=== PATIENT | male | born 1965 | race Caucasian/White ===

== ENCOUNTER 2017-12-09 14:24 | Emergency (ER) | END 2017-12-09 17:40 | disposition home or self-care (01) ==

== ENCOUNTER 2019-06-03 01:21 | Observation (INO) | payer OTHER ==
[~2019-06-03] VITALS: Ht 165.1 cm; Wt 81.5 kg
[~2019-06-03 01:21] MED LIST: ACET500C5 PO; IBUP800T48 PO
[2019-06-03] MEDS ORDERED: SOD CHLORIDE 0.9% 500 ML IV STA (03:08)
[2019-06-03] MEDS ORDERED: ONDANSETRON 4 MG INJ IV STA (04:29)
[2019-06-03] MEDS ORDERED: morphine 4 MG/ML VIAL IV STA (04:29)
--- NOTE | 2019-06-03 05:25 | ERD ---
ER Documentation Chief Complaint Chief Complaint CHEST PAIN/PRESSURE X1HR; NO MED HX HPI This is a 54-year-old male with no medical history of chest pressure with radiation to his left arm for the past hour prior to arrival. Pain is mild to moderate intensity pressure-like in sensation with no exacerbating or alleviating factors and radiation to the left arm and left jaw. Denies fevers or chills. Denies shortness of breath. Does complain of mild diaphoresis and mild nausea associated with it. No previous medical history. No previous cardiac work-up. Reviewing EMR patient's been here one time previous for a closed head injury. ROS All systems reviewed and are negative except as per history of present illness. Medications Home Meds Discontinued Scripts Acetaminophen* (Tylophen*) 500 Mg Capsule, 1 CAP PO Q6H PRN for PAIN AND OR ELEVATED TEMP, #30 CAP Prov:SIRI ELLISON PA-C 12/09/17 Allergies Allergies: Coded Allergies: No Known Allergy (Unverified , 06/03/19) PMhx/Soc Medical and Surgical Hx: pt denies Medical Hx, pt denies Surgical Hx Hx Alcohol Use: No Hx Substance Use: No Hx Tobacco Use: No Smoking Status: Never smoker Physical Exam Vitals Vital Signs Date Temp Pulse Resp B/P (MAP) Pulse Ox O2 O2 Flow FiO2 Time Delivery Rate 06/03/19 98.0 70 19 104/58 96 01:29 (73) Physical Exam Const: No acute distress Head: Atraumatic Eyes: Normal Conjunctiva ENT: Normal External Ears, Nose and Mouth. Neck: Full range of motion. No meningismus. Resp: Clear to auscultation bilaterally Cardio: Regular rate and rhythm, no murmurs Abd: Soft, non tender, non distended. Normal bowel sounds Skin: No petechiae or rashes Back: No midline or flank tenderness Ext: No cyanosis, or edema Neur: Awake and alert Psych: Normal Mood and Affect Result Diagram: 06/03/19 0340 06/03/19 0340 Results 24 hrs Laboratory Tests Test 06/03/19 03:40 White Blood Count 6.5 10^3/ul Red Blood Count 4.53 10^6/ul Hemoglobin 13.5 g/dl Hematocrit 40.5 % Mean Corpuscular Volume 89.4 fl Mean Corpuscular Hemoglobin 29.8 pg Mean Corpuscular Hemoglobin Concent 33.3 g/dl Red Cell Distribution Width 12.5 % Platelet Count 205 10^3/UL Mean Platelet Volume 10.0 fl Immature Granulocytes % 0.300 % Neutrophils % 56.4 % Lymphocytes % 28.9 % Monocytes % 10.7 % Eosinophils % 3.1 % Basophils % 0.6 % Nucleated Red Blood Cells % 0.0 /100WBC Immature Granulocytes # 0.020 10^3/ul Neutrophils # 3.7 10^3/ul Lymphocytes # 1.9 10^3/ul Monocytes # 0.7 10^3/ul Eosinophils # 0.2 10^3/ul Basophils # 0.0 10^3/ul Nucleated Red Blood Cells # 0.0 10^3/ul Sodium Level 139 mmol/L Potassium Level 4.1 mmol/L Chloride Level 105 mmol/L Carbon Dioxide Level 26 mmol/L Anion Gap 8 Blood Urea Nitrogen 26 mg/dl Creatinine 0.83 mg/dl Est Glomerular Filtrat Rate mL/min > 60 mL/min Glucose Level 136 mg/dl Calcium Level 9.3 mg/dl Total Bilirubin 0.5 mg/dl Direct Bilirubin 0.00 mg/dl Indirect Bilirubin 0.5 mg/dl Aspartate Amino Transf (AST/SGOT) 33 IU/L Alanine Aminotransferase (ALT/SGPT) 42 IU/L Alkaline Phosphatase 95 IU/L Troponin I < 0.012 ng/ml B-Type Natriuretic Peptide 37 PG/ML Total Protein 7.8 g/dl Albumin 4.2 g/dl Globulin 3.60 g/dl Albumin/Globulin Ratio 1.16 Current Medications Medications Dose Sig/Kelli Start Time Status Last (Trade) Ordered Route PRN Stop Time Admin Dose Reason Admin Sodium 500 ml @ Q1H STAT 06/03/19 DC 06/03/19 Chloride 500 mls/hr IV 03:08 04:00 06/03/19 04:07 Morphine 4 mg ONCE STAT 06/03/19 DC 06/03/19 Sulfate IV 04:29 04:43 (morphine) 06/03/19 04:31 Ondansetron 4 mg ONCE STAT 06/03/19 DC 06/03/19 HCl (Zofran IV 04:29 04:43 Inj) 06/03/19 04:31 Procedures/MDM EKG: Rate/Rhythm: [Normal Sinus Rhythm] QRS, ST, T-waves: [No changes consistent w/ acute ischemia] Impression: [No evidence of ischemia or arrhythmia] Chest X-ray 1V Interpreted by me: Soft Tissue: No acute abnormalities Bones: No acute abnormalities Mediastinum/Cardiac Silhouette/Lungs: [No acute abnormalities] Medical decision making: Patient's symptoms are concerning for cardiac cause will require inpatient workup and continuous monitoring. Further w/u for isch emia, arrhythmia, PE or dissection will be deferred to the inpatient team. Accepting Care Team: Current data and ongoing care discussed. Time: 5:40 AM Primary Provider: Kae Consulting: Deferred to inpatient team Outstanding Data: none Departure Diagnosis: Primary Impression: Chest pain Chest pain type: unspecified Qualified Codes: R07.9 - Chest pain, unspecified Condition: Serious BOB PRESSLEY Jun 03, 2019 05:25
[2019-06-03] MEDS ORDERED: ASPIRIN 81 MG TAB PO ONE (05:30)
[2019-06-03] MEDS ORDERED: ONDANSETRON 4 MG INJ IV PRN ×2 (05:30→07:30)
[2019-06-03] MEDS ORDERED: ACETAMINOPHEN 325 MG TAB PO PRN (05:30)
[2019-06-03 06:33] VITALS: Ht 165.1 cm; Wt 81.5 kg
[2019-06-03 06:34] VITALS: BP 102/67; PULSE 57; RESP 18
[2019-06-03 07:24] VITALS: BP 94/59; PULSE 60; RESP 20
[2019-06-03] MEDS ORDERED: ATORVASTATIN 20 MG TAB PO SCH (07:30)
[2019-06-03] MEDS ORDERED: morphine 2 MG INJ IV PRN (07:30)
[2019-06-03] MEDS ORDERED: ASPIRIN (EC) 81 MG TAB PO SCH (09:00)
--- NOTE | 2019-06-03 09:45 | PDOCDIS ---
Discharge Instructions CONDITION [id number] Patient Condition: [id number] Good HOME CARE INSTRUCTIONS: [id number] Diet Instructions: [id number] Regular ACTIVITY: [id number] Activity Restrictions: [id number] Avoid heavy lifting FOLLOW UP/APPOINTMENTS Follow-up Plan pcp 1 week ARTHUR GIMENEZ MD Jun 03, 2019 09:45
[2019-06-03 10:56] VITALS: BP 99/62; PULSE 52; RESP 20
[2019-06-03 15:12] VITALS: BP 93/56; PULSE 59; RESP 20
--- NOTE | 2019-06-03 15:19 | HP ---
DATE OF ADMISSION: 06/03/2019 CHIEF COMPLAINT: Left-sided chest pain. HISTORY OF PRESENT ILLNESS: The patient is a 54-year-old male with an unremarkable past med ical history, who presented to emergency room with complaint of left upper chest pain radiating to th e left arm. The patient had constant pain for 4 to 5 hours, which was finally relieved with morphine . He denies any exertional symptoms. No shortness of breath. No nausea or vomiting. The patient h ad mild diaphoresis. 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 Initial evaluation was unremarkable. Serial troponins have been negative. A 12-lead EKG did not reginald w any ST-T wave changes. The chest x-ray was unremarkable. PAST MEDICAL HISTORY: None. MEDICATIONS PRIOR TO ADMISSION: None. SOCIAL HISTORY: The patient lives at home. He denies tobacco use and drinks alcohol on rare social occasions. PHYSICAL EXAMINATION: GENERAL: Well-developed, well-nourished male who is in no apparent distress. VITAL SIGNS: Stable. He is afebrile. HEENT: Extraocular muscles intact. Pupils equal and reactive to light bilaterally. Sclerae are ani cteric. Oropharynx is clear and moist. NECK: Supple, no JVD, no carotid bruits. LUNGS: Clear to auscultation bilaterally. CARDIAC: Regular rate and rhythm. No murmurs or gallops. CHEST: Left upper chest tenderness to palpation adjacent to the left shoulder. The patient has repr oducible chest discomfort for when he raises his left upper extremity. ABDOMEN: Soft, nontender, nondistended, normoactive bowel sounds. EXTREMITIES: No clubbing, cyanosis, or edema. NEUROLOGICAL: Nonfocal. LABORATORY DATA: Basic metabolic panel and liver function tests were all within normal limits. CBC was normal. ASSESSMENT: The patient is a 54-year-old male presenting with atypical chest pain. The pain is oracio cent to the left shoulder and is reproducible with palpation and left upper extremity range of motion . The patient has no cardiac risk factors. PLAN: 1. Place in tele observation, proceed with 2D echo. 2. Discharge planning on a 5-day course of nonsteroidal anti-inflammatory. Cardiology consultation was also requested. Dictated By: ARTHUR DIAZ/NEREYDA Conf#: [id number] DID#: [id number] CC: MADHURI PENA MD;*[facility]*
[2019-06-03] MEDS ORDERED: REGADENOSON 0.4 MG/5 ML SYG ONE (15:37)
--- NOTE | 2019-06-03 16:10 | RADRPT ---
Echocardiogram Report Patient Name: KOBY BARRIOSPatient ID: [id number] : 1965 (54y 1m)Study Date: 06/03/2019 9:35:10 AM Gender: MAccession #: [id number] Tech: David Blanton [facility] Location: [address] Ref.Physician: MADHURI PENA Height(Cm): BSA: Weight(Kg): Quality: Technically Difficult StudyAccount #: [id number] Procedures: Echocardiographic Report: Transthoracic echocardiogram with complete 2D, M-Mode, and doppler examination. Indications: Chest Pain. Measurements: 2D/M Mode Doppler Measurement Value Normal Range Measurement Value Normal Range LVIDd 2D 5.1 [ 4.2 - 5.8 ] cm AV Peak Micah 1.1 [ 100.0 - 170.0 ] cm/sec LVIDs 2D 3.7 [ 2.5 - 4.0 ] cm AV Peak PG 5.0 [ 2.0 - 9.0 ] mmHg LVPWd 2D 0.8 [ 0.6 - 1.0 ] cm LVOT Peak Micah 0.7 [ 70.0 - 110.0 ] cm/sec IVSd 2D 0.7 [ 0.6 - 1.0 ] cm LVOT Peak PG 2.0 [ 2.0 - 6.0 ] mmHg AoR Diam 2D 2.8 [ 2.6 - 3.4 ] cm MV E Peak Micah 0.8 [ 60.0 - 130.0 ] cm/sec EDV 2D 125.0 [ 62.0 - 150.0 ] ml MV A Peak Micah 0.6 [ 100.0 - 120.0 ] cm/sec ESV 2D 59.3 [ 21.0 - 61.0 ] ml MV E/A 1.3 [ 0.8 - 1.5 ] ratio EF 2D 52.6 [ 52.0 - 72.0 ] percent MV Decel Time 183 [ 104 - 258 ] msec LA Dimen 2D 3.8 [ 3.0 - 4.0 ] cm Lat E` Micah 0.1 [ 10.0 - 15.0 ] cm/sec Lateral E/E` 7.0 [ 1.0 - 2.0 ] ratio Med E` Micah 0.1 cm/sec MV E/A 1.3 [ 0.8 - 1.5 ] ratio TR Peak Micah 2.2 [ 100.0 - 280.0 ] cm/sec TR Peak PG 19.0 mmHg RVSP 27.0 [ 10.0 - 36.0 ] mmHg Findings: Left Ventricle: Normal left ventricular systolic function. Normal left ventricular cavity size. Normal left ventricular wall thickness. Ejection fraction is visually estimated at 55 %. Right Ventricle: Normal right ventricular size. Normal right ventricular systolic function. Left Atrium: The left atrium is normal in size. Right Atrium: The right atrium is normal in size. Mitral Valve: Mild mitral leaflet calcification. Mild mitral annular calcification. Trace mitral regurgitation. Aortic Valve: No significant aortic stenosis or insufficiency. Aortic cusps appear mildly calcified. Tricuspid Valve: Normal appearance and function of the tricuspid valve with trace physiologic regurgitation. The estimated Peak RVSP is 27 mmHg. Pericardium: Normal pericardium with no significant pericardial effusion. Aorta: Normal aortic root. IVC: Dilated IVC with respiratory collapse consistent with elevated right atrial pressure. Conclusions: Normal left ventricular systolic function. Normal left ventricular cavity size. Normal left ventricular wall thickness. Ejection fraction is visually estimated at 55 %. Normal right ventricular size. Normal right ventricular systolic function. No significant valvular stenosis or regurgitation seen. Normal pericardium with no significant pericardial effusion. Electronically Signed By: Bret Posadas 2019-06-03 16:10:20 PDT
--- NOTE | 2019-06-03 22:00 | CONS ---
Assessment/Plan Assessment/Plan Hospital Course (Demo Recall) Chest pain Family history coronary artery disease Normal nuclear cardiac perfusion study 06/03/2019 Patient with chest pain. Serial cardiac enzymes negative, ECG with no significant ischemic abnormalities. Given family history, patient underwent nuclear cardiac perfusion study with no evidence of any perfusion defects. Given improvement in symptoms and above results, no further inpatient cardiac work-up needed at the current time Consultation Date/Type/Reason Admit Date/Time Jun 03, 2019 at 05:29 Type of Consult Cardiology Reason for Consultation chest pain Date/Time of Note DATE: 06/03/19 TIME: 21:56 Hx of Present Illness This is a 54-year-old male who presents with chest pain which began after work. 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 He denies exertional chest pain or shortness of breath. When he came home, later on that evening, patient developed left-sided chest pain with arm numbness and neck pain. Pain was initially sharp, at times also occasional pressure. Denies shortness of breath. Pain is now become localized over the left breast is more so reproducible with palpation and arm movement. He otherwise denies exertional chest pain or shortness of breath. 12 point review of systems was performed with all pertinent positives and negatives mentioned above and all else is negative Past Medical History Medical History: no pertinent history Home Meds Active Scripts Ibuprofen* (Motrin*) 800 Mg Tab, 800 MG PO TID for 5 Days, #15 TAB Prov:ARTHUR GIMENEZ MD 06/03/19 Discontinued Scripts Acetaminophen* (Tylophen*) 500 Mg Capsule, 1 CAP PO Q6H PRN for PAIN AND OR ELEVATED TEMP, #30 CAP Prov:SIRI ELLISON PA-C 12/09/17 Allergies: Coded Allergies: No Known Allergy (Unverified , 06/03/19) Past Surgical History Past Surgical Hx: appendectomy Family History Significant Family History: heart disease Social History Smoking Status: Never smoker Exam/Review of Systems Vital Signs Vitals Vital Signs Date Temp Pulse Resp B/P (MAP) Pulse Ox O2 O2 Flow FiO2 Time Delivery Rate 06/03/19 97.6 59 20 93/56 (68) 95 Room Air 15:12 Exam Constitutional: alert, oriented, well developed Head: normocephalic Respiratory: clear to auscultation, normal air movement Cardiovascular: regular rate and rhythm (No murmurs appreciated) Gastrointestinal: soft, non-tender, bowel sounds Musculoskeletal: other (Pain with palpation of chest wall) Extremities: other (No edema) Labs Result Diagram: 06/03/19 0340 06/03/19 0340 Results 24hrs Laboratory Tests Test 06/03/19 03:40 06/03/19 08:22 White Blood Count 6.5 Red Blood Count 4.53 L Hemoglobin 13.5 L Hematocrit 40.5 L Mean Corpuscular Volume 89.4 Mean Corpuscular Hemoglobin 29.8 Mean Corpuscular Hemoglobin Concent 33.3 Red Cell Distribution Width 12.5 Platelet Count 205 Mean Platelet Volume 10.0 Immature Granulocytes % 0.300 Neutrophils % 56.4 Lymphocytes % 28.9 Monocytes % 10.7 Eosinophils % 3.1 Basophils % 0.6 Nucleated Red Blood Cells % 0.0 Immature Granulocytes # 0.020 Neutrophils # 3.7 Lymphocytes # 1.9 Monocytes # 0.7 Eosinophils # 0.2 Basophils # 0.0 Nucleated Red Blood Cells # 0.0 Sodium Level 139 Potassium Level 4.1 Chloride Level 105 Carbon Dioxide Level 26 Anion Gap 8 Blood Urea Nitrogen 26 H Creatinine 0.83 Est Glomerular Filtrat Rate mL/min > 60 Glucose Level 136 Calcium Level 9.3 Total Bilirubin 0.5 Direct Bilirubin 0.00 Indirect Bilirubin 0.5 Aspartate Amino Transf (AST/SGOT) 33 Alanine Aminotransferase (ALT/SGPT) 42 Alkaline Phosphatase 95 Troponin I < 0.012 < 0.012 B-Type Natriuretic Peptide 37 Total Protein 7.8 Albumin 4.2 Globulin 3.60 H Albumin/Globulin Ratio 1.16 Imaging Imaging ECG sinus rhythm, normal QRS duration, no significant ischemic ST abnormalities Bret Posadas DO Jun 03, 2019 22:00
--- NOTE | 2019-06-06 05:59 | DS ---
DATE OF ADMISSION: 06/03/2019 DATE OF DISCHARGE: 06/03/2019 DISCHARGE DIAGNOSIS: The patient is a 54-year-old male with atypical chest pain. HOSPITAL COURSE: This is a 54-year-old male who presented to Emergency Room with a complaint of left upper chest discomfort for which began after work. 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 Initial e valuation revealed left upper chest tenderness to palpation along the border of the left shoulder. T he patient denied any exertional pain or shortness of breath. He was evaluated by Dr. Scott Posadas. A 2D echo showed an ejection fraction of 55% with normal LV systolic function. The patient was diagnosed with atypical chest pain. I prescribed 5 days of nonst eroidal anti-inflammatory. He was discharged home in stable condition. I asked him to follow up wit h his PCP as outpatient. Dictated By: ARTHUR DIAZ/NEREYDA Conf#: [id number] DID#: [id number] CC: SCOTT POSADAS DO;*[facility]*
== END 2019-06-03 19:23 | disposition home or self-care (01) ==
LOC: E/R 01:21 → TEL 05:29
PROVIDERS: ADMIT Legal Medicine; ATTEND Legal Medicine
DX: R07.89 Other chest pain (principal)
CPT/HCPCS: 36415; 71045; 78452; 80053; 83880; 84484; 85025; 93005; 93017; 93306; 96374; 96375; 99285; A9500; A9505; G0378; J2270; J2405; J2785; J7040